=== PATIENT | male | born 2000 | race African-American/Black ===

== ENCOUNTER 2019-08-06 15:06 | Emergency (ER) | payer MEDICAID ==
[~2019-08-06] VITALS: Ht 175.3 cm; Wt 63.1 kg
[~2019-08-06 15:06] MED LIST: ALBU0.63 NEB; ALBU18HF INH; CETI10TA32 PO; IPRA15SP2 INH
[2019-08-06 15:10] VITALS: BP 126/75
[2019-08-06 15:59] LABS: CULTURE INDICATED? YES; MICROSCOPIC INDICATED
--- NOTE | 2019-08-06 16:02 | NUR ---
PT UPRIGHT ON GURNEY AWAKE & COMFORTABLE, WATCHING TV & TEXTING ON PHONE, RESPONDS APPROP TO STAFF, NAD, COMFORT MEASURES PROVIDED, CALL LIGHT WITHIN REACH.
[2019-08-06] MEDS ORDERED: AZITHROMYCIN 500 MG TABLET ONE (17:00)
[2019-08-06] MEDS ORDERED: CEFTRIAXONE 250 MG IM ONE (17:00)
[2019-08-06] MEDS ORDERED: AZITHROMYCIN 500 MG TABLET PO ONE (17:00)
[2019-08-06] MEDS ORDERED: CEFTRIAXONE 250 MG ONE (17:00)
--- NOTE | 2019-08-06 17:01 | NUR ---
PT REMAINS UPRIGHT ON GURNEY AWAKE & COMFORTABLE, WATCHING TV & TEXTING ON PHONE, RESPONDS APPROP TO STAFF, NAD, COMFORT MEASURES PROVIDED, CALL LIGHT WITHIN REACH.
--- NOTE | 2019-08-06 17:12 | NUR ---
Patient given discharge instructions and Rx, they have confirmed that they understand the instructions. Patient ambulatory with steady gait.
== END 2019-08-06 17:15 | disposition home or self-care (01) ==
LOC: ED 16:23
DX: N30.00 Acute cystitis without hematuria (principal); N34.2 Other urethritis; J45.909 Unspecified asthma, uncomplicated
CPT/HCPCS: 81001; 87086; 87491; 87591; 96372; 99283; J0696

== ENCOUNTER 2019-09-07 19:59 | Emergency (ER) | payer MEDICAID ==
[~2019-09-07] VITALS: Ht 170.2 cm; Wt 64.2 kg
[2019-09-07 20:04] VITALS: BP 100/49
[2019-09-07] MEDS ORDERED: ALBUTEROL/IPRATROPIUM 2.5MG/0.5MG, 3 ML NPPB ONE (20:30)
--- NOTE | 2019-09-07 21:33 | NUR ---
Patient given discharge instructions and Rx, they have confirmed that they understand the instructions. Patient ambulatory with steady gait.
== END 2019-09-07 22:35 | disposition home or self-care (01) ==
LOC: ED 21:40
DX: J45.31 Mild persistent asthma with (acute) exacerbation (principal)
CPT/HCPCS: 71046; 93005; 94640; 99283; J7620

== ENCOUNTER 2020-04-21 20:43 | Emergency (ER) | payer MEDICAID ==
[~2020-04-21] VITALS: Ht 175.3 cm; Wt 62.0 kg
--- NOTE | 2020-04-21 21:48 | NUR ---
pt to room from lobby
--- NOTE | 2020-04-21 22:20 | NUR ---
THIS IS A 19 YO MALE COMING IN WITH C/O HAVING LOWER ABD PAIN, DISCHARGE AND BURNING. ALSO NOTES CRAMPS IN SUPRAPUBIC REGION, HAS BEEN TREATED BEFORE FOR KAREN/CHLAM TWO WEEKS AGO, THEN AGAIN LAST WEEK FOR SAME SYMPTOMS WITH A 5 DAY COURSE OF ABX. MONITORING IN PLACE, VSS, NADN. CALL LIGHT IN REACH. UA COLLECTED AND SENT
[2020-04-21 22:29] LABS: MICROSCOPIC INDICATED
[2020-04-21] MEDS ORDERED: CIPROFLOXACIN 500 MG TABLET ONE (23:19)
[2020-04-21] MEDS ORDERED: HYDROcodone/APAP 5/325 TABLET ONE (23:20)
[2020-04-21 23:25] VITALS: BP 117/78
--- NOTE | 2020-04-21 23:25 | NUR ---
PATIENT MEDICATED PER EMAR, TOLERATED WELL
[2020-04-21] MEDS ORDERED: CIPROFLOXACIN 500 MG TABLET PO ONE (23:30)
[2020-04-21] MEDS ORDERED: HYDROcodone/APAP 5/325 TABLET PO ONE (23:30)
--- NOTE | 2020-04-21 23:48 | NUR ---
Patient/Caregiver given discharge instructions and they have confirmed that they understand the instructions. Patient ambulatory with steady gait.
== END 2020-04-21 23:49 | disposition home or self-care (01) ==
LOC: ED 22:49
DX: N41.0 Acute prostatitis (principal); R10.2 Pelvic and perineal pain; J45.909 Unspecified asthma, uncomplicated; Z87.891 Personal history of nicotine dependence
CPT/HCPCS: 81001; 87491; 87591; 99283

== ENCOUNTER 2020-05-20 17:40 | Emergency (ER) | payer MEDICAID ==
[~2020-05-20] VITALS: Ht 175.3 cm; Wt 62.1 kg
[2020-05-20 17:43] VITALS: BP 132/66
--- NOTE | 2020-05-20 18:30 | NUR ---
PT CAME IN CO OF URINARY PAIN AND DRIBBLING. WAS TREATED 2 WEEKS AGO FOR UTI. BUT STATES THE SYMPTOMS HAVE NOT RESOLVED. PT IS RESTING IN [facility]. IV STARTED. PT TO CT AT THIS TIME
[2020-05-20 18:32] LABS: MEAN CORPUSCULAR HEMOGLOBIN 34.1 pg (27.5-34.5); MEAN PLATELET VOLUME 7.7 fL (7.4-10.4); PLATELET COUNT 262 x10^3/uL (130-400); RED CELL DISTRIBUTION WIDTH 12.8 % (9.4-14.8)
[2020-05-20 18:34] LABS: HCT (SEDRATE) 47.5 % (39.2-51.8)
[2020-05-20 18:37] LABS: MICROSCOPIC AUTO
[2020-05-20 18:41] LABS: ALBUMIN 4.3 g/dL (3.4-5.0); ANION GAP 4 mmol/L (5-15); C-REACTIVE PROTEIN, QUANT < 0.02 mg/dL (0.02-0.49); CALCIUM 9.3 mg/dL (8.5-10.1); CHLORIDE 105 mmol/L (98-107); CREATININE 1.07 mg/dL (0.7-1.3)
[2020-05-20] MEDS ORDERED: OMNIPAQUE 350 MG/ML, 100ML BOTTLE ONE (19:00)
[2020-05-20 19:04] LABS: BASOPHILS # (AUTO) 0.03 x10^3/uL (0-0.3); BASOPHILS % (AUTO) 0 % (0-1); EOSINOPHILS # (AUTO) 0.23 x10^3/uL (0-0.8); EOSINOPHILS % (AUTO) 3 % (1-7); LYMPHOCYTES # (AUTO) 1.91 x10^3/uL (1-6.1); LYMPHOCYTES % (AUTO) 24 % (22-44); MD SCAN; MONOCYTES # (AUTO) 0.68 x10^3/uL (0-1.4); MONOCYTES % (AUTO) 9 % (2-9); NEUTROPHILS # (AUTO) 5.01 x10^3/uL (1.8-8.0); NEUTROPHILS % (AUTO) 64 % (42-75)
== END 2020-05-20 19:43 | disposition home or self-care (01) ==
LOC: ED 18:47
DX: R30.0 Dysuria (principal); R10.30 Lower abdominal pain, unspecified; N50.812 Left testicular pain; N50.811 Right testicular pain; J45.909 Unspecified asthma, uncomplicated; Z87.891 Personal history of nicotine dependence
CPT/HCPCS: 36415; 74177; 76870; 80048; 81001; 82040; 85025; 85651; 86140; 99285; Q9967